=== PATIENT | male | born 1990 | race Two or more races ===

== ENCOUNTER 2017-06-22 18:21 | Emergency (ER) | payer OTHER ==
[~2017-06-22] VITALS: Ht 172.7 cm; Wt 69.4 kg
[2017-06-22 19:56] VITALS: BP 128/69
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
[2017-06-22] MEDS ORDERED: AMOX500T PO (20:52)
[2017-06-22] MEDS ORDERED: IBUP-1060 PO (20:52)
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
== END 2017-06-22 21:09 | disposition home or self-care (01) ==
LOC: ER 18:21
DX: S00.83XA Contusion of other part of head, initial encounter (principal); K04.7 Periapical abscess without sinus; K02.9 Dental caries, unspecified; W21.03XA Struck by baseball, initial encounter; Y93.89 Activity, other specified; Y99.8 Other external cause status; Y92.89 Other specified places as the place of occurrence of the external cause
CPT/HCPCS: 70450; 70486; 99284-25

== ENCOUNTER 2018-04-18 20:15 | Emergency (ER) | payer SELFPAY ==
[~2018-04-18] VITALS: Ht 208.3 cm; Wt 68.0 kg
[~2018-04-18 20:15] MED LIST: AMOX500T PO; IBUP-1060 PO
[2018-04-18 20:27] VITALS: BP 145/81
[2018-04-18] MEDS ORDERED: PENI500T PO (21:07)
[2018-04-18] MEDS ORDERED: TRAM-48 PO (21:07)
--- NOTE | 2018-04-18 21:08 | PHYS DOC ---
Past Medical History Past Medical History: Other Additional Past Medical Histor: G6PD DEFICIENCY Past Surgical History: No Surgical History Alcohol Use: None Drug Use: None Adult General Chief Complaint Chief Complaint: DENTAL PROBLEM HPI HPI Patient is a 27 year old with right upper tooth toe pain 2 days. Patient has many teeth that are brown and black in the gumline looks to be cool and red. Patients right upper face states that he woke up this morning and is swollen. Patient states he has no dentist but he is currently awaiting his insurance to take effect. Patient states that recently his other family members and him have been sick with a sore throat and runny nose is thinks he's been running a fever. Patient states he was taking 1 Tylenol and was feeling better but today is just painful. Patient states it hurts all the way up into his ears and jaw. Patient has G6PD deficiency currently takes no medications and has no past medical history or surgeries. Review of Systems Review of Systems Constitutional: Denies fever or chills [] Eyes: Denies change in visual acuity, redness, or eye pain [] HENT: Dental pain and facial swelling. Denies nasal congestion or sore throat [] Respiratory: Denies cough or shortness of breath [] Cardiovascular: No additional information not addressed in HPI [] GI: Denies abdominal pain, nausea, vomiting, bloody stools or diarrhea [] : Denies dysuria or hematuria [] Musculoskeletal: Denies back pain or joint pain [] Integument: Denies rash or skin lesions [] Neurologic: Denies headache, focal weakness or sensory changes [] Endocrine: Denies polyuria or polydipsia [] All other systems were reviewed and found to be within normal limits, except as documented in this note. Allergies Allergies Allergies Coded Allergies Type Severity Reaction Last Updated Verified No Known Drug Allergies 06/22/17 No Physical Exam Physical Exam Constitutional: Well developed, well nourished, no acute distress, non-toxic appearance. [] HENT: Normocephalic, atraumatic, bilateral external ears normal, oropharynx moist, no oral exudates, nose normal. Right upper Dental pain with right facial swelling. [] Eyes: PERRLA, EOMI, conjunctiva normal, no discharge. [] Neck: Normal range of motion, no tenderness, supple, no stridor. [] Cardiovascular:Heart rate regular rhythm, no murmur [] Lungs & Thorax: Bilateral breath sounds clear to auscultation [] Abdomen: Bowel sounds normal, soft, no tenderness, no masses, no pulsatile masses. [] Skin: Warm, dry, no erythema, no rash. [] Back: No tenderness, no CVA tenderness. [] Extremities: No tenderness, no cyanosis, no clubbing, ROM intact, no edema. [] Neurologic: Alert and oriented X 3, normal motor function, normal sensory function, no focal deficits noted. [] Psychologic: Affect normal, judgement normal, mood normal. [] EKG EKG [] Radiology/Procedures Radiology/Procedures [] Course & Med Decision Making Course & Med Decision Making Patient is a 27 year old with right upper tooth toe pain 2 days. Patient has many teeth that are brown and black in the gumline looks to be cool and red. Patients right upper face states that he woke up this morning and is swollen. Patient states he has no dentist but he is currently awaiting his insurance to take effect. Patient states that recently his other family members and him have been sick with a sore throat and runny nose is thinks he's been running a fever. Patient states he was taking 1 Tylenol and was feeling better but today is just painful. Patient states it hurts all the way up into his ears and jaw. Patient has G6PD deficiency currently takes no medications and has no past medical history or surgeries. Lungs are clear in all lobes. Patient is alert and oriented. Skin is pink warm and dry. Throat is red without exudates. Patient will be given penicillin antibiotic, [place] and Ibuprofen. [] Dragon Disclaimer Dragon Disclaimer This electronic medical record was generated, in whole or in part, using a voice recognition dictation system. Departure Departure Impression: Primary Impression: Dental abscess Disposition: HOME, SELF-CARE Condition: STABLE Referrals: NO PCP (PCP) Patient Instructions: Dental Abscess Additional Instructions: You must follow up with a dentist as soon as possible. Take medications as prescribed. Scripts Tramadol Hcl (ULTRAM) 50 Mg Tablet 50 MG PO Q6HRS PRN for PAIN, #10 TAB 0 Refills Prov: MAYNOR HADDAD METAL SORTER 04/18/18 Penicillin V Potassium (PENICILLIN V POTASSIUM) 500 Mg Tablet 1 TAB PO QID, #40 TAB Prov: MAYNOR HADDAD METAL SORTER 04/18/18 MAYNOR HADDAD APRN Apr 18, 2018 21:08
== END 2018-04-18 21:25 | disposition home or self-care (01) ==
LOC: ER 20:15
DX: K04.7 Periapical abscess without sinus (principal)
CPT/HCPCS: 99283